=== PATIENT | female | born 1950 | race Caucasian/White ===

== ENCOUNTER 2023-05-14 15:28 | Outpatient (CLI) | payer MEDICARE | END 2023-05-14 15:29 | disposition home or self-care (01) | LOC: CSHMRI 15:28 | PROVIDERS: ATTEND Nurse Practitioner Family | DX: G25.0 Essential tremor (principal); I10 Essential (primary) hypertension; E78.2 Mixed hyperlipidemia; E07.9 Disorder of thyroid, unspecified; F51.01 Primary insomnia; F33.1 Major depressive disorder, recurrent, moderate; E11.65 Type 2 diabetes mellitus with hyperglycemia; R29.898 Other symptoms and signs involving the musculoskeletal system; M46.92 Unspecified inflammatory spondylopathy, cervical region; M47.812 Spondylosis without myelopathy or radiculopathy, cervical region; M48.02 Spinal stenosis, cervical region; M48.54XA Collapsed vertebra, not elsewhere classified, thoracic region, initial encounter for fracture | CPT/HCPCS: 72141 ==

== ENCOUNTER 2024-04-25 13:26 | Outpatient (CLI) | payer MEDICARE ==
[2024-04-25 14:48] LABS: Hematocrit 46.6 % (34.9-44.5); Hemoglobin 15.1 g/dL (12.0-15.5)
[2024-04-25 14:58] LABS: Anion Gap 14 mmol/L (10-20); BUN (Urea Nitrogen) 19 mg/dL (9.8-20.1); Calc. Creatinine Clearance 0 mL/min (70-130); Calcium 10.2 mg/dL (7.8-10.44); Carbon Dioxide 27 mmol/L (23-31); Chloride 104 mmol/L (98-107); Estimated GFR 78; Glucose 185 mg/dL (83-110); Potassium 3.9 mmol/L (3.5-5.1); Sodium 141 mmol/L (136-145)
== END 2024-04-25 13:27 | disposition home or self-care (01) ==
LOC: CSHLAB 13:26
PROVIDERS: ATTEND Otolaryngology Plastic Surgery within the Head & Neck
DX: Z01.812 Encounter for preprocedural laboratory examination (principal); R49.0 Dysphonia; J38.01 Paralysis of vocal cords and larynx, unilateral
CPT/HCPCS: 80048; 85014; 85018

== ENCOUNTER 2024-04-28 08:28 | Day surgery (SDC) | payer MEDICARE ==
[2024-04-25 13:52] VITALS: BMI 23.1
[2024-04-28] MEDS ORDERED: Midazolam HCl 2 mg/2 ml Vial ONE (10:21)
[2024-04-28] MEDS ORDERED: fentaNYL 50 mcg/mL 1 mL Vial ONE ×3 (10:21→12:56)
[2024-04-28] MEDS ORDERED: Dexamethasone 20 MG/5 ML VIAL ONE (10:21)
[2024-04-28] MEDS ORDERED: PROPOFOL 20 ML ONE (10:21)
[2024-04-28] MEDS ORDERED: Lidocaine 1% PF 5 ML VIAL ONE ×2 (10:21→10:38)
[2024-04-28] MEDS ORDERED: Ondansetron PF 4 MG/2 ML Vial ONE (10:21)
[2024-04-28] MEDS ORDERED: ePHEDrine Sulfate 50 MG/10 ML VIAL ONE (10:33)
[2024-04-28] MEDS ORDERED: Propofol 1,000 MG/100 ML VIAL IV ONE (10:57)
[2024-04-28] MEDS ORDERED: Lidocaine 4% Topical Sol 50 ML BOT ONE (10:57)
[2024-04-28] MEDS ORDERED: Glycopyrrolate 0.2 MG/ML 5 ML SYRINGE ONE (11:04)
[2024-04-28] MEDS ORDERED: Labetalol HCl 100 MG/20 ML VIAL ONE (11:26)
[2024-04-28] MEDS ORDERED: EPINEPHrine 1 MG/ML AMP ONE (12:03)
[2024-04-28] MEDS ORDERED: Hydrocodone-Acetamin 15 ML UDCUP ONE (12:42)
== END 2024-04-28 13:32 | disposition home or self-care (01) ==
LOC: CSHSDC 08:28
PROVIDERS: ATTEND Otolaryngology Plastic Surgery within the Head & Neck
PROC: 3E0F83Z Introduction of Anti-inflammatory into Respiratory Tract, Via Natural or Artificial Opening Endoscopic (ICD-10-PCS; principal; 2024-04-28)
DX: J38.00 Paralysis of vocal cords and larynx, unspecified (principal); I10 Essential (primary) hypertension; I25.10 Atherosclerotic heart disease of native coronary artery without angina pectoris; E11.9 Type 2 diabetes mellitus without complications; E03.9 Hypothyroidism, unspecified; Z98.890 Other specified postprocedural states; Z88.5 Allergy status to narcotic agent; Z79.899 Other long term (current) drug therapy; Z79.890 Hormone replacement therapy
CPT/HCPCS: 31571; J1100; J2250; J2405; J2704 ×2; J3010; L8607; J0171